=== PATIENT | male | born 1990 | race Caucasian/White ===

== ENCOUNTER 2021-02-08 00:54 | Emergency (ER) | payer OTHER ==
[2021-02-08] MEDS ORDERED: LODINE CAP 300300 MG PO (01:26)
[2021-02-08] MEDS ORDERED: CLEOCIN HCL150 MG PO (01:26)
== END 2021-02-08 01:45 | disposition home or self-care (01) ==
LOC: ER1 00:54
DX: K02.9 Dental caries, unspecified (principal); Z88.0 Allergy status to penicillin
CPT/HCPCS: 96372; 99282